=== PATIENT | female | born 1990 | race African-American/Black ===

== ENCOUNTER 2020-12-04 02:56 | Emergency (ER) | payer OTHER ==
[2020-12-04] MEDS ORDERED: hydrOXYzine 25 MG TAB ONE (03:22)
== END 2020-12-04 04:15 | disposition home or self-care (01) ==
LOC: BURERS 02:56
DX: F41.0 Panic disorder [episodic paroxysmal anxiety] (principal); F17.210 Nicotine dependence, cigarettes, uncomplicated
CPT/HCPCS: 99284